=== PATIENT | male | born 1960 | race Caucasian/White ===

== ENCOUNTER 2017-07-05 19:51 | Emergency (ER) | payer OTHER ==
[~2017-07-05] VITALS: Ht 180.3 cm; Wt 104.3 kg
[~2017-07-05 19:51] MED LIST: DIVA500T4 PO
[2017-07-05 21:01] VITALS: BP_SYST 148
--- NOTE | 2017-07-05 21:06 | NUR ---
PT AMBULATORY TO WAITING ROOM
--- NOTE | 2017-07-05 21:54 | NUR ---
PT AMBULATORY TO BED 2 FOR EVAL
--- NOTE | 2017-07-05 21:54 | NUR ---
Pt ambulatory, a/o x 4 c/o moderate nausea/vomiting every 30 minutes since morning. Pt onset of symptoms started after eating possible bad fish last night. The patient reported associated burning pain to the throat and epigastric area due to persistent vomiting. The patient stated he is now dry heaving and vomitus appears bilous. Denied fever or diarrhea. The patient stated he struggles with constipation and had a small bowel movement. Pt denied any resp problem and short of breath.
[2017-07-05] MEDS ORDERED: NACL 0.9% 1,000 ML IV ONE (22:10)
--- NOTE | 2017-07-05 22:10 | NUR ---
DON Magana at bedside examining patient.
[2017-07-05 22:53] LABS: BASOPHILS % (AUTO) 0.3 % (0.0-2.0); EOSINOPHILS # (AUTO) 0.1 K/uL (0.0-0.4); HEMATOCRIT 50.5 % (36-54); HEMOGLOBIN 16.6 g/dL (14.0-18.0); LYMPHOCYTES # (AUTO) 0.9 K/uL (1.0-5.5); MEAN CORPUSCULAR HEMOGLOBIN 28 pg (27-31); MEAN CORPUSCULAR HGB CONC 33 % (32-36); MEAN CORPUSCULAR VOLUME 85 fL (79.0-98.0); MONOCYTES # (AUTO) 0.6 K/uL (0.0-1.0); MONOCYTES % (AUTO) 5.7 % (1.7-9.3); NEUTROPHILS # (AUTO) 9.7 K/uL (1.8-7.7); PLATELET COUNT (AUTO) 159 K/uL (130-430); RED BLOOD CELL COUNT(AUTO) 5.92 MIL/uL (4.2-6.2); WHITE BLOOD COUNT (AUTO) 11.3 K/uL (4.8-10.8)
[2017-07-05] MEDS ORDERED: ONDANSETRON HCL 4 MG/2 ML VIAL IVP ONE (23:00)
[2017-07-05 23:06] LABS: CALCIUM 9.1 mg/dL (8.4-11.0); CREATININE 0.74 mg/dL (0.55-1.30); POTASSIUM 3.7 mmol/L (3.5-5.1)
[2017-07-05 23:11] LABS: TOTAL BILIRUBIN 0.5 mg/dL (0.0-1.0)
[2017-07-06 00:15] VITALS: BP_SYST 136
--- NOTE | 2017-07-06 00:15 | NUR ---
Patient given written and verbal discharge instructions and verbalizes understanding. ER MD discussed with patient the results and treatment provided. Patient in stable condition. ID arm band removed. IV catheter removed intact and dressing applied, no active bleeding. Rx of ZOFRAN given. Patient educated on pain management and to follow up with PMD. Pain Scale . Opportunity for questions provided and answered.
== END 2017-07-06 00:15 | disposition home or self-care (01) ==
LOC: SED 19:51
DX: K52.9 Noninfective gastroenteritis and colitis, unspecified (principal); Z90.49 Acquired absence of other specified parts of digestive tract; Z88.5 Allergy status to narcotic agent; Z88.8 Allergy status to other drugs, medicaments and biological substances
CPT/HCPCS: 36415; 74176; 80053; 83690; 85025; 96361; 96374; 99285; J2405; J7030

== ENCOUNTER 2018-05-08 12:39 | Emergency (ER) | payer OTHER ==
[~2018-05-08] VITALS: Ht 177.8 cm; Wt 99.8 kg
[2018-05-08 12:54] VITALS: BP_SYST 142
[2018-05-08] MEDS ORDERED: IPRATROPIUM BROM 0.5 MG/2.5 ML VIAL.NEB (ATROVENT) INH ONE ×2 (14:15→14:18)
[2018-05-08] MEDS ORDERED: ALBUTEROL SULFATE 0.083% 2.5 MG/3 ML VIAL.NEB INH ONE ×2 (14:15→14:18)
[2018-05-08 14:39] LABS: ANION GAP 8 (5-15); CALCIUM 9.1 mg/dL (8.4-11.0); CHLORIDE 101 mmol/L (98-107); CREATININE 0.78 mg/dL (0.55-1.30); GLUCOSE 128 mg/dL (70-99); POTASSIUM 3.9 mmol/L (3.5-5.1); SODIUM SERUM 137 mmol/L (136-145); UREA NITROGEN, BLOOD 11 mg/dL (8-21)
[2018-05-08 14:45] LABS: ALANINE AMINOTRANSFERASE 56 U/L (12-78); ALBUMIN 3.7 g/dL (3.4-4.8); ASPARTATE AMINOTRANSFERASE 23 U/L (10-37); TOTAL BILIRUBIN 0.4 mg/dL (0.0-1.0)
[2018-05-08 14:46] LABS: GFR AFRICAN AMERICAN 132 mL/min (>90); PROTHROMBIN TIME 9.8 SECS (9.5-12.5)
[2018-05-08 14:53] LABS: BASOPHILS % (AUTO) 0.2 % (0.0-2.0); EOSINOPHILS # (AUTO) 0.2 K/uL (0.0-0.4); EOSINOPHILS % (AUTO) 3.3 % (0.0-4.0); HEMATOCRIT 50.1 % (36-54); HEMOGLOBIN 16.3 g/dL (14.0-18.0); LYMPHOCYTES % (AUTO) 41.5 % (20.5-51.5); MEAN CORPUSCULAR HEMOGLOBIN 28 pg (27-31); MEAN CORPUSCULAR HGB CONC 33 % (32-36); MEAN CORPUSCULAR VOLUME 85 fL (79.0-98.0); MONOCYTES # (AUTO) 0.6 K/uL (0.0-1.0); MONOCYTES % (AUTO) 7.9 % (1.7-9.3); NEUTROPHILS # (AUTO) 3.4 K/uL (1.8-7.7); NEUTROPHILS % (AUTO) 47.1 % (40.0-70.0); PLATELET COUNT (AUTO) 183 K/uL (130-430); RED BLOOD CELL COUNT(AUTO) 5.91 MIL/uL (4.2-6.2); RED CELL DISTRIBUTION WIDTH 12.6 % (9.0-15.0); WHITE BLOOD COUNT (AUTO) 7.2 K/uL (4.8-10.8)
[2018-05-08 16:00] VITALS: BP_SYST 147
== END 2018-05-08 16:00 | disposition home or self-care (01) ==
LOC: SED 12:39
DX: J40 Bronchitis, not specified as acute or chronic (principal); Z90.49 Acquired absence of other specified parts of digestive tract; Z88.6 Allergy status to analgesic agent; Z88.8 Allergy status to other drugs, medicaments and biological substances
CPT/HCPCS: 36415; 71046; 80053; 83880; 84145; 84484; 85025; 85610; 85730; 94640; 99284; J7613

== ENCOUNTER 2018-10-03 20:09 | Emergency (ER) | payer OTHER ==
[~2018-10-03] VITALS: Ht 177.8 cm; Wt 97.5 kg
[2018-10-03 20:20] VITALS: BP_SYST 147
--- NOTE | 2018-10-03 21:25 | NUR ---
Note delroyissac in EDM - 10/03/18 at 2130 by [email or web address] Pt brought by self ,A&Ox4, pt presents to ER with redness to left eye since last night and swelling on L eyelid, skin pink and warm, cap refill <3, VSS, afebrile.
--- NOTE | 2018-10-03 21:28 | NUR ---
2128 - Patient to ER bed 7 to gown for evaluation. Side rails up. Report given to ANAND Knowles.
--- NOTE | 2018-10-03 21:30 | NUR ---
Pt brought by self ,A&Ox4, pt presents to ER with redness to left eye since last night and swelling on L eyelid, skin pink and warm, cap refill <3, VSS, afebrile.
--- NOTE | 2018-10-03 22:14 | NUR ---
ER at bedside examining patient.
[2018-10-03] MEDS ORDERED: ERYTHROMYCIN 0.5% EYE OINT 3.5 GM OP ONE (22:30)
[2018-10-03] MEDS ORDERED: ERYTHROMYCIN BASE 0.5% EYE OINT...G. ONE (22:44)
--- NOTE | 2018-10-03 22:50 | NUR ---
Erythromycin Ointment 1gm administered to left eye. unable to scan. Charge nurse, Rosalina MICHEL and ER Doctor Abundio made aware.
[2018-10-03 23:00] VITALS: BP_SYST 138
[2018-10-03] MEDS ORDERED: ERYTHROMYCIN BASE 0.5% EYE OINT...G. OP ONE (23:00)
--- NOTE | 2018-10-03 23:00 | NUR ---
Patient given written and verbal discharge instructions and verbalizes understanding. ER MD discussed with patient the results and treatment provided. Patient in stable condition. ID arm band removed. Rx of Polytrim 1mg and Erythromycin 0.5% ointment given. Patient educated on pain management and to follow up with PMD. Pain Scale 0/10. Opportunity for questions provided and answered. Medication side effect fact sheet provided.
[2018-10-04] MEDS ORDERED: POLYMYXIN B/TRIMETHOPRIM EYE DROPS 10 mL OP SCH (06:00)
== END 2018-10-03 23:00 | disposition home or self-care (01) ==
LOC: SED 20:09
DX: H00.015 Hordeolum externum left lower eyelid (principal); H10.9 Unspecified conjunctivitis; Z90.49 Acquired absence of other specified parts of digestive tract; Z88.6 Allergy status to analgesic agent; Z88.8 Allergy status to other drugs, medicaments and biological substances
CPT/HCPCS: 99283

== ENCOUNTER 2019-06-04 16:44 | Emergency (ER) | payer OTHER ==
[~2019-06-04] VITALS: Ht 180.3 cm; Wt 97.5 kg
[2019-06-04 16:45] VITALS: BP_SYST 147
--- NOTE | 2019-06-04 16:50 | NUR ---
Patient triaged and placed in waiting room. VSS and patient appears in no acute distress at this time. Accompanied by SELF, awaiting available bed, and MD notified of need for MSE.
--- NOTE | 2019-06-04 17:19 | NUR ---
BROUGHT BACK TO BED #2 AND REPORT GIVEN TO ELISEO
--- NOTE | 2019-06-04 17:45 | NUR ---
Patient presented to ER C/O Cold symptoms. Patient A&Ox4, ambulatory to ER, afebrile, nasal congestion & cough, pain 8/10, denies N/V/D. Patient states he has headach, nasal congetion & cough x1week. Patient states he was seen at last week copleted Tamiflu Rx but symptoms continue.
--- NOTE | 2019-06-04 18:50 | NUR ---
ER Dr. Harding at bedside examining patient.
[2019-06-04] MEDS ORDERED: KETOROLAC TROMETHAMINE 60 MG/2 ML VIAL IM ONE (19:00)
--- NOTE | 2019-06-04 19:12 | NUR ---
Report to Jace MICHEL
[2019-06-04 19:38] VITALS: BP_SYST 140
--- NOTE | 2019-06-04 19:38 | NUR ---
Patient given written and verbal discharge instructions and verbalizes understanding. ER MD discussed with patient the results and treatment provided. Patient in stable condition. ID arm band removed. No IV Rx of Prednisone, Motrin given. Patient educated on pain management and to follow up with PMD. Pain Scale 0/10. Opportunity for questions provided and answered. Medication side effect fact sheet provided.
== END 2019-06-04 19:38 | disposition home or self-care (01) ==
LOC: SED 16:44
DX: J11.1 Influenza due to unidentified influenza virus with other respiratory manifestations (principal); Z88.5 Allergy status to narcotic agent; Z88.8 Allergy status to other drugs, medicaments and biological substances
CPT/HCPCS: 71045; 96372; 99283; J1885

== ENCOUNTER 2019-06-11 11:46 | Emergency (ER) | payer OTHER ==
[~2019-06-11] VITALS: Ht 177.8 cm; Wt 97.5 kg
[2019-06-11 11:55] VITALS: BP_SYST 135
[2019-06-11 15:11] VITALS: BP_SYST 135
== END 2019-06-11 15:11 | disposition home or self-care (01) ==
LOC: SED 11:46
DX: J18.9 Pneumonia, unspecified organism (principal); Z88.5 Allergy status to narcotic agent
CPT/HCPCS: 36415; 71046-TC; 86710; 99284

== ENCOUNTER 2022-01-23 13:56 | Emergency (ER) | payer OTHER ==
[~2022-01-23] VITALS: Ht 177.8 cm; Wt 102.1 kg
[2022-01-23 14:00] VITALS: BP_SYST 151
--- NOTE | 2022-01-23 14:00 | NUR ---
Patient triaged and placed in waiting room. VSS and patient appears in no acute distress at this time. Accompanied by FAMILY, awaiting available bed, and MD notified of need for MSE.
--- NOTE | 2022-01-23 16:12 | NUR ---
ER at bedside examining patient.
[2022-01-23] MEDS ORDERED: IBUP-1969 PO (16:14)
--- NOTE | 2022-01-23 16:38 | NUR ---
Assisting primary nurse with discharge: Patient given written and verbal discharge instructions and verbalizes understanding. ER MD discussed with patient the results and treatment provided. Patient in stable condition. ID arm band removed. Rx of Ibuprofen given. Patient educated on pain management and to follow up with PMD. Pt given radiology reports upon pt request. Opportunity for questions provided and answered. Medication side effect fact sheet provided.
[2022-01-23 16:40] VITALS: BP_SYST 151
== END 2022-01-23 16:40 | disposition home or self-care (01) ==
LOC: SED 13:56
DX: S99.921A Unspecified injury of right foot, initial encounter (principal); R22.41 Localized swelling, mass and lump, right lower limb; J44.9 Chronic obstructive pulmonary disease, unspecified; Z88.6 Allergy status to analgesic agent; Z88.8 Allergy status to other drugs, medicaments and biological substances; Z79.899 Other long term (current) drug therapy; W17.89XA Other fall from one level to another, initial encounter; Y93.89 Activity, other specified; Y92.89 Other specified places as the place of occurrence of the external cause; Y99.8 Other external cause status
CPT/HCPCS: 93971; 99284

== ENCOUNTER 2022-10-05 14:20 | Emergency (ER) | payer OTHER ==
[~2022-10-05] VITALS: Ht 180.3 cm; Wt 102.1 kg
[~2022-10-05 14:20] MED LIST changes: +IBUP-1969 PO
[2022-10-05 14:58] VITALS: BP_SYST 124
[2022-10-05] MEDS ORDERED: IBUPROFEN 800 MG TABLET PO ONE (15:30)
[2022-10-05 15:32] LABS: BASOPHILS % (AUTO) 0.4 % (0.0-2.0); EOSINOPHILS # (AUTO) 0.2 K/uL (0.0-0.4); EOSINOPHILS % (AUTO) 2.7 % (0.0-4.0); HEMATOCRIT 46.6 % (36-54); HEMOGLOBIN 15.3 g/dL (14.0-18.0); LYMPHOCYTES # (AUTO) 2.3 K/uL (1.0-5.5); LYMPHOCYTES % (AUTO) 31.6 % (20.5-51.5); MEAN CORPUSCULAR HEMOGLOBIN 28 pg (27-31); MEAN CORPUSCULAR HGB CONC 33 % (32-36); MEAN CORPUSCULAR VOLUME 86 fL (79.0-98.0); MONOCYTES # (AUTO) 0.7 K/uL (0.0-1.0); MONOCYTES % (AUTO) 10.3 % (1.7-9.3); PLATELET COUNT (AUTO) 153 K/uL (130-430); RED BLOOD CELL COUNT(AUTO) 5.42 MIL/uL (4.2-6.2); RED CELL DISTRIBUTION WIDTH 13.8 % (9.0-15.0); WHITE BLOOD COUNT (AUTO) 7.3 K/uL (4.8-10.8)
[2022-10-05 15:46] LABS: ANION GAP 7 (5-15); CALCIUM 9.3 mg/dL (8.4-11.0); CHLORIDE 104 mmol/L (98-107); CREATININE 0.75 mg/dL (0.55-1.30); GFR AFRICAN AMERICAN 137 mL/min (>90); GLUCOSE 157 mg/dL (70-99); UREA NITROGEN, BLOOD 18 mg/dL (8-21)
[2022-10-05 15:49] LABS: ERYTHROCYTE SEDIMENTATION RATE 5 MM/HR (0-15)
[2022-10-05 16:03] LABS: ALANINE AMINOTRANSFERASE 64 U/L (12-78); ALBUMIN 3.6 g/dL (3.4-4.8); ASPARTATE AMINOTRANSFERASE 27 U/L (10-37); TOTAL BILIRUBIN 0.3 mg/dL (0.0-1.0); URIC ACID 5.3 mg/dL (2.4-7.0)
[2022-10-05 16:07] LABS: C-REACTIVE PROTEIN QUANT < 0.2 mg/dL (0-0.5)
[2022-10-05] MEDS ORDERED: TRAM50TA2 PO (16:25)
[2022-10-05 16:50] VITALS: BP_SYST 133
== END 2022-10-05 16:49 | disposition home or self-care (01) ==
LOC: SED 14:20
DX: S83.91XA Sprain of unspecified site of right knee, initial encounter (principal); J44.9 Chronic obstructive pulmonary disease, unspecified; Z88.5 Allergy status to narcotic agent; Z88.8 Allergy status to other drugs, medicaments and biological substances; W19.XXXA Unspecified fall, initial encounter; Y93.89 Activity, other specified; Y92.89 Other specified places as the place of occurrence of the external cause; Y99.8 Other external cause status
CPT/HCPCS: 36415; 73564; 80053; 84550; 85025; 85651-TC; 86140; 99284

== ENCOUNTER 2022-11-30 12:15 | Emergency (ER) | payer OTHER ==
[~2022-11-30] VITALS: Ht 154.9 cm; Wt 99.3 kg
[~2022-11-30 12:15] MED LIST changes: +TRAM50TA2 PO
[2022-11-30 12:30] VITALS: BP_SYST 111
--- NOTE | 2022-11-30 13:20 | NUR ---
Pt brought by self, A&Ox4, ambulatory , pt presents to ER with generalized skin rash, pt states she is taking amoxicillin for 7 days, afebrile, skin pink and warm, cap refill <3, VSS, respirations even and unlabored.
[2022-11-30] MEDS ORDERED: DIPHENHYDRAMINE INJ 50 MG/ML VIAL IM ONE (14:15)
[2022-11-30] MEDS ORDERED: predniSONE 20 MG TABLET PO ONE (14:15)
--- NOTE | 2022-11-30 14:20 | NUR ---
Dr Alicia evaluating patient at bedside
[2022-11-30] MEDS ORDERED: BENZONATATE 100 MG CAPSULE (TESSALON) PO ONE (14:30)
[2022-11-30] MEDS ORDERED: guaiFENesin/DEXTROMETHORPHAN 10 ML UDC PO ONE (14:30)
[2022-11-30] MEDS ORDERED: EPIN0.3P3 IM (15:03)
[2022-11-30] MEDS ORDERED: PRED20TA PO (15:03)
[2022-11-30] MEDS ORDERED: DIPH25CA83 PO (15:03)
[2022-11-30 15:17] VITALS: BP_SYST 111
--- NOTE | 2022-11-30 15:18 | NUR ---
Patient given written and verbal discharge instructions and verbalizes understanding. ER MD discussed with patient the results and treatment provided. Patient in stable condition. ID arm band removed. Rx of Benadryl, Epipen, Prednisone given. Patient educated on pain management and to follow up with PMD. Pain Scale 0/10. Opportunity for questions provided and answered. Medication side effect fact sheet provided.
== END 2022-11-30 15:18 | disposition home or self-care (01) ==
LOC: SED 12:15
DX: T78.49XA Other allergy, initial encounter (principal); R21 Rash and other nonspecific skin eruption; Z88.6 Allergy status to analgesic agent; Z88.8 Allergy status to other drugs, medicaments and biological substances; X58.XXXA Exposure to other specified factors, initial encounter
CPT/HCPCS: 99283; 96372; J7512; J1200